=== PATIENT | female | born 1955 | race Caucasian/White ===

== ENCOUNTER → 2017-02-09 | Outpatient (CLI) | payer BC ==
--- NOTE | 2017-02-09 12:49 | EST ---
DATE OF SERVICE: 02/09/2017 AGE: 61Y SEX: F HT: 65" WT: 185 lbs. Protocol Nahun: X Other: Stress Stage: 2 Dur. of Exercise: 6:30 *Heart Rate Blood Pressure *Rest: 98 Rest: 158/109 * *Max. Achieved: 142 Maximum BP: 211/110 85% PMHR: 137 100% PMHR: 161 *METS: 7.9 INDICATIONS: Hypertension. MEDICATIONS: Nexium, lisinopril. Mrs. Gillespie is a 61-year-old female with history of hypertension and family history of ischemic heart disease being evaluated for cardiac status. Baseline EKG showed sinus rhythm with normal CO interval and QRS duration. Blood pressure at rest is 158/109 with a pulse rate of 98. Patient walked on the Nahun protocol for 6-1/2 minutes achieving a maximum heart rate of rate of 142 with a blood pressure of 210/110. EKGs taken during and after the exercise did not reveal any significant changes from the baseline. FINAL IMPRESSION: 1. Negative stress test. 2. Patient did not experience any chest pain. 3. No arrhythmias were detected. 4. Patient's exercise capacity is fair.
--- NOTE | 2017-02-14 14:10 | ECHOF ---
Referral Reason:I10 Hypertension MEASUREMENTS -------- HEIGHT: 165.1 cm WEIGHT: 83.9 kg BP: 158/109 RVIDd: 3.0 cm (< 3.3) IVSd: 1.1 cm (0.6 - 1.1) LVIDd: 4.6 cm (3.9 - 5.3) LVPWd: 1.1 cm (0.6 - 1.1) IVSs: 1.3 cm LVIDs: 2.9 cm LVPWs: 1.3 cm LA Diam: 2.8 cm (2.7 - 3.8) LAESV Index (A-L): 13.01 ml/m Ao Diam: 3.4 cm (2.0 - 3.7) AV Cusp: 2.2 cm (1.5 - 2.6) MV EXCURSION: 11.063 mm (> 18.000) MV EF SLOPE: 22 mm/s (70 - 150) MV E Bennett: 0.69 m/s MV DecT: 284 ms MV A Bennett: 0.91 m/s MV E/A Ratio: 0.76 FINDINGS -------- Sinus rhythm. This was a technically good study. The left ventricular size is normal. There is borderline concentric left ventricular hypertrophy. Overall left ventricular systolic function is normal with, an EF between 60 - 65 %. The right ventricle is normal in size and function. Normal LA size by volume 22+/-6 ml/m2. The right atrium is normal in size. Aortic valve is trileaflet and is mildly thickened. The mitral valve is normal. The tricuspid valve appears structurally normal. Trace/mild (physiologic) pulmonic regurgitation. The aortic root size is normal. Normal inferior vena cava with normal inspiratory collapse consistent with estimated right atrial pressure of 5 mmHg. The pericardium is normal. CONCLUSIONS -------- 1. Sinus rhythm. 2. The mitral valve is normal. 3. The tricuspid valve appears structurally normal. 4. Trace/mild (physiologic) pulmonic regurgitation. 5. The aortic root size is normal. 6. The pericardium is normal. 7. This was a technically good study. 8. The left ventricular size is normal. 9. There is borderline concentric left ventricular hypertrophy. 10. Overall left ventricular systolic function is normal with, an EF between 60 - 65 %. 11. The right ventricle is normal in size and function. 12. Normal LA size by volume 22+/-6 ml/m2. 13. The right atrium is normal in size. 14. Aortic valve is trileaflet and is mildly thickened. SOLAR SYSTEM DESIGNER: Sharla Hall RDCS
== END | disposition home or self-care (01) ==
LOC: RADNMMAIN 11:06
PROVIDERS: ATTEND Internal Medicine
DX: I10 Essential (primary) hypertension (principal)
CPT/HCPCS: 93017; 93306

== ENCOUNTER → 2017-09-14 | Outpatient (CLI) | payer BC ==
--- NOTE | 2017-09-15 08:57 | MM ---
Reason for exam: screening (asymptomatic). Last mammogram was performed 1 year and 1 month ago. History: Patient is postmenopausal. Physical Findings: A clinical breast exam by your physician is recommended on an annual basis and results should be correlated with mammographic findings. MG 3D Screening Mammo W/Cad Bilateral CC and MLO view(s) were taken. Prior study comparison: August 10, 2016, bilateral MG 3d screening mammo w/cad. August 06, 2015, bilateral MG 3d screening mammo w/cad. The breast tissue is heterogeneously dense. This may lower the sensitivity of mammography. Focal asymmetry outer left CC view 7.7cm from nipple. This finding is changed when compared with previous exams. ASSESSMENT: Incomplete: need additional imaging evaluation, BI-RAD 0 RECOMMENDATION: Special view mammogram of the left breast. If lesion persists on supplemental views, image directed ultrasound is recommended. [facility] will attempt to contact patient to return for supplemental views and ultrasound if indicated.
== END | disposition home or self-care (01) ==
LOC: RADMAMWWP 15:44
PROVIDERS: ATTEND Internal Medicine
DX: Z12.31 Encounter for screening mammogram for malignant neoplasm of breast (principal)
CPT/HCPCS: 77063; G0202

== ENCOUNTER → 2018-11-06 | Outpatient (CLI) | payer BC ==
--- NOTE | 2018-11-08 09:42 | MM ---
Reason for exam: screening (asymptomatic). Last mammogram was performed 1 year and 1 month ago. History: Patient is postmenopausal. Physical Findings: A clinical breast exam by your physician is recommended on an annual basis and results should be correlated with mammographic findings. MG 3D Screening Mammo W/Cad Bilateral CC and MLO view(s) were taken. Prior study comparison: September 21, 2017, left breast MG 3d work up w/cad LT. September 14, 2017, bilateral MG 3d screening mammo w/cad. There are scattered fibroglandular densities. Subareolar focal asymmetry on the left appears more defined and incompletely disperses on 3D. ASSESSMENT: Incomplete: need additional imaging evaluation, BI-RAD 0 RECOMMENDATION: Special view mammogram of the left breast. If lesion persists on supplemental views, image directed ultrasound is recommended. [facility] will attempt to contact patient to return for supplemental views and ultrasound if indicated.
== END | disposition home or self-care (01) ==
LOC: RADMAMWWP 15:24
PROVIDERS: ATTEND Internal Medicine
DX: Z12.31 Encounter for screening mammogram for malignant neoplasm of breast (principal)
CPT/HCPCS: 77063; 77067

== ENCOUNTER → 2018-11-13 | Outpatient (CLI) | payer BC ==
--- NOTE | 2018-11-14 08:05 | MM ---
Reason for exam: additional evaluation requested from abnormal screening. Last mammogram was performed less than 1 month ago. History: Patient is postmenopausal. Physical Findings: Nurse Summary: nodule in the right breast at 3 o'clock and a nodule in the left breast at 2/3 o'clock (nurse kp). MG 3D Work Up W/Cad LT Spot compression CC, spot compression MLO, and LM view(s) were taken of the left breast. Prior study comparison: November 06, 2018, bilateral MG 3d screening mammo w/cad. September 21, 2017, left breast MG 3d work up w/cad LT. There are scattered fibroglandular densities. Subareolar focal asymmetry appears to disperse on additional 3D views. Bilateral palpable markers have been placed. These results were verbally communicated with the patient and result sheet given to the patient on 11/13/18. ASSESSMENT: Incomplete: need additional imaging evaluation, BI-RAD 0 RECOMMENDATION: Ultrasound of both breasts. (right upper inner quadrant palpable, left 5 palpables)
--- NOTE | 2018-11-14 08:11 | USB ---
Reason for exam: additional evaluation requested from abnormal screening. History: Patient is postmenopausal. US Breast Workup Limited ASHLEY Right limited breast ultrasound including focal area of concern, retroareolar and axilla demonstrates a 2.1 x 2.1 x 1.9cm oval, circumscribed, solid, mildly hyperechoic lipoma at 3 o'clock BB. Left complete breast ultrasound includes all four quadrants, the retroareolar region and axilla. Finding demonstrates a 0.4 x 0.4 x 0.2cm oval, solid, hyperechoic lesion at 12 o'clock, most compatible with lipoma, duct ectasia at 3 o'clock, a 1.5 x 2.0 x 0.6cm oval, solid, hyperechoic lesion at 3 o'clock BB, a 1.8 x 1.6 x 0.6cm oval, isoechoic, circumscribed lesion at 3:30 BB, suggestive of lipoma, a 0.8 x 0.5 x 0.4cm oval, solid, isoechoic, circumscribed lesion at 3:30, suggestive of lipoma, a 1.3 x 1.5 x 0.6cm solid lesion at 8 o'clock BB, a 2.8 x 2.0 x 0.9cm solid lesion at 9 o'clock BB, a 2.3 x 2.6 x 0.8cm solid lesion at 9 o'clock BB and a 0.8 x 0.9 x 0.4cm solid, echogenic lipoma at 11 o'clock. These results were verbally communicated with the patient and result sheet given to the patient on 11/13/18. ASSESSMENT: Probably benign, BI-RAD 3 RECOMMENDATION: Follow-up diagnostic mammogram of both breasts in 1 year.
== END | disposition home or self-care (01) ==
LOC: RADMAMWWP 13:15
PROVIDERS: ATTEND Internal Medicine
DX: R92.8 Other abnormal and inconclusive findings on diagnostic imaging of breast (principal)
CPT/HCPCS: 77061; 77065

== ENCOUNTER → 2020-03-12 | Outpatient (CLI) | payer BC ==
--- NOTE | 2020-03-13 10:15 | MM ---
Reason for exam: additional evaluation requested from prior study. Last mammogram was performed 1 year and 4 months ago. History: Patient is postmenopausal. Physical Findings: Nurse Summary: 2cm nodule in the right breast at 3 o'clock and a 2cm nodule in the left breast at 9 o'clock, 12 o'clock and 3 o'clock (nurse mj). MG 3D Diag Mammo W/Cad ASHLEY Bilateral CC and MLO view(s) were taken. LM and spot compression MLO view(s) were taken of the left breast. Prior study comparison: November 13, 2018, left breast MG 3d work up w/cad LT. November 06, 2018, bilateral MG 3d screening mammo w/cad. September 14, 2017, bilateral MG 3d screening mammo w/cad. August 10, 2016, bilateral MG 3d screening mammo w/cad. There are scattered fibroglandular densities. Bilateral palpable markers. Left subareolar asymmetric density on MLO does not clearly persist on 3D lateral view. These results were verbally communicated with the patient and result sheet given to the patient on 03/12/20. ASSESSMENT: Incomplete: need additional imaging evaluation, BI-RAD 0 RECOMMENDATION: Ultrasound of both breasts. (right palpable, left palpable and periareolar)
--- NOTE | 2020-03-13 10:20 | USB ---
Reason for exam: additional evaluation requested from abnormal screening. History: Patient is postmenopausal. US Breast Limited BILAT Technologist: Radha Moran Right limited breast ultrasound including focal area of concern, retroareolar and axilla demonstrates three oval, hyperechoic lesions measuring 0.6 x 0.7 x 0.3cm at 1 o'clock, 1.9 x 1.5 x 0.6cm at 2 o'clock and 2.8 x 3.1 x 0.9cm at 3 o'clock. Left limited breast ultrasound including focal area of concern, retroareolar and axilla demonstrates three oval, hyperechoic lesions measuring 2.8 x 2.8 x 1.0cm at 9 o'clock, 1.5 x 1.5 x 0.5cm at 12 o'clock and 1.8 x 1.7 x 0.6cm at 3 o'clock. Most compatible with benign lipomas. No subareolar lesion on the left breast. 6 month follow up mammogram. Scanned right breast 12-3 o'clock. Scanned left breast 9-3 o'clock. These results were verbally communicated with the patient and result sheet given to the patient on 03/12/20. ASSESSMENT: Probably benign, BI-RAD 3 RECOMMENDATION: Follow-up diagnostic mammogram of the left breast in 6 months.
== END | disposition home or self-care (01) ==
LOC: RADMAMWWP 08:07
PROVIDERS: ATTEND Internal Medicine
DX: R92.8 Other abnormal and inconclusive findings on diagnostic imaging of breast (principal)
CPT/HCPCS: 77062; 77066

== ENCOUNTER → 2020-11-11 | Outpatient (CLI) | payer BC ==
--- NOTE | 2020-11-11 11:17 | MM ---
Reason for exam: follow-up at short interval from prior study. Last mammogram was performed 8 months ago. History: Patient is postmenopausal. Physical Findings: Nurse Summary: 1.5cm nodule in the right breast and a 1.5cm nodule in the left breast (nurse dw). MG 3D Diag Mammo W/Cad LT CC and MLO view(s) were taken of the left breast. Prior study comparison: March 12, 2020, bilateral MG 3d diag mammo w/cad ASHLEY. November 06, 2018, bilateral MG 3d screening mammo w/cad. There are scattered fibroglandular densities. No significant new findings when compared with previous films. These results were verbally communicated with the patient and result sheet given to the patient on 11/11/20. ASSESSMENT: Benign, BI-RAD 2 RECOMMENDATION: Routine screening mammogram of both breasts in 5 months. Back on schedule for February 2021.
== END | disposition home or self-care (01) ==
LOC: RADMAMWWP 07:13
PROVIDERS: ATTEND Internal Medicine
DX: R92.8 Other abnormal and inconclusive findings on diagnostic imaging of breast (principal)
CPT/HCPCS: 77061; 77065

== ENCOUNTER → 2021-03-25 | Outpatient (CLI) | payer BC ==
--- NOTE | 2021-03-27 15:08 | MM ---
Reason for exam: screening (asymptomatic). Last mammogram was performed 4 months ago. History: Patient is postmenopausal. Physical Findings: A clinical breast exam by your physician is recommended on an annual basis and results should be correlated with mammographic findings. MG 3D Screening Mammo W/Cad Bilateral CC and MLO view(s) were taken. Prior study comparison: November 11, 2020, left breast MG 3d diag mammo w/cad LT. March 12, 2020, bilateral MG 3d diag mammo w/cad ASHLEY. There are scattered fibroglandular densities. No significant changes when compared with prior studies. ASSESSMENT: Negative, BI-RAD 1 RECOMMENDATION: Routine screening mammogram of both breasts in 1 year.
== END | disposition home or self-care (01) ==
LOC: RADMAMWWP 15:59
PROVIDERS: ATTEND Internal Medicine
DX: Z12.31 Encounter for screening mammogram for malignant neoplasm of breast (principal); Z78.0 Asymptomatic menopausal state
CPT/HCPCS: 77063; 77067

== ENCOUNTER → 2022-04-02 | Outpatient (CLI) | payer BC ==
--- NOTE | 2022-04-02 12:18 | MM ---
Reason for Exam: Screening (asymptomatic). Last mammogram was performed 1 year(s) and 1 month(s) ago. Patient History: Menarche at age 14. First Full-Term at age 27. Postmenopausal. Risk Values: Qiana 5 year model risk: 1.8%. NCI Lifetime model risk: 7.2%. Prior Study Comparison: 03/12/2020 Bilateral Diagnostic Mammogram, [facility]. 11/11/2020 Left Diagnostic Mammogram, [facility]. 03/25/2021 Bilateral Screening Mammogram, [facility]. Tissue Density: There are scattered fibroglandular densities. Findings: Analyzed By CAD. There is no suspicious group of microcalcifications or new suspicious mass in either breast. Overall Assessment: Negative, BI-RAD 1 Management: Screening Mammogram of both breasts in 1 year. A clinical breast exam by your physician is recommended on an annual basis and results should be correlated with mammographic findings. Electronically signed and approved by: Raymon Mcfadden M.D.
== END | disposition home or self-care (01) ==
LOC: RADMAMWWP 06:59
PROVIDERS: ATTEND Internal Medicine
DX: Z12.31 Encounter for screening mammogram for malignant neoplasm of breast (principal); Z78.0 Asymptomatic menopausal state
CPT/HCPCS: 77063; 77067

== ENCOUNTER → 2023-04-26 | Outpatient (CLI) | payer MEDICARE ==
--- NOTE | 2023-04-27 18:46 | MM ---
Reason for Exam: Screening (asymptomatic). Last mammogram was performed 1 year(s) and 1 month(s) ago. Patient History: Menarche at age 14. First Full-Term at age 27. Postmenopausal. Risk Values: Qiana 5 year model risk: 1.8%. NCI Lifetime model risk: 6.9%. Prior Study Comparison: 11/11/2020 Left Diagnostic Mammogram, [facility]. 03/25/2021 Bilateral Screening Mammogram, [facility]. 04/02/2022 Bilateral MG 3D screening mammo w/cad, [facility]. Tissue Density: There are scattered fibroglandular densities. Findings: Analyzed By CAD. Pattern appears symmetrical and stable. No significant interval change is evident. No suspicious groups of microcalcifications, spiculated or lobular masses, architectural distortion or other secondary signs of malignancy are mammographically apparent. Overall Assessment: Benign, BI-RAD 2 Management: Screening Mammogram of both breasts in 1 year. A negative mammogram report should not preclude additional follow up of suspicious palpable abnormalities. Patient should continue monthly self breast exam. A clinical breast exam by your physician is recommended on an annual basis and results should be correlated with mammographic findings. Electronically signed and approved by: Regis Dove D.O. Radiologis
== END | disposition home or self-care (01) ==
LOC: RADMAMWWP 07:18
PROVIDERS: ATTEND Internal Medicine
DX: Z12.31 Encounter for screening mammogram for malignant neoplasm of breast (principal); Z78.0 Asymptomatic menopausal state
CPT/HCPCS: 77063; 77067

== ENCOUNTER → 2024-02-03 | Outpatient (CLI) | payer MEDICARE ==
--- NOTE | 2024-02-03 18:44 | CA ---
Transthoracic Echo Report Name: Celine Gillespie Age: 68 Gender: F : 1955 Exam Date: 02/03/2024 11:40 Exam Location: [facility] Ht (in): 65 Wt (lb): 170 Ordering Physician: Glendy Naik MD Attending/Referring Phys: Glendy Naik MD Wildlife Control Operator Consuelo Man RDCS Procedure CPT: Indications: I10 HTN Cardiac Hx: Technical Quality: Fair Contrast 1: Total Dose (mL): Contrast 2: Total Dose (mL): MEASUREMENTS (Male / Female) Normal Values 2D ECHO LV Diastolic Diameter PLAX 3.5 cm 4.2 - 5.9 / 3.9 - 5.3 cm LV Systolic Diameter PLAX 1.8 cm IVS Diastolic Thickness 1.4 cm 0.6 - 1.0 / 0.6 - 0.9 cm LVPW Diastolic Thickness 1.2 cm 0.6 - 1.0 / 0.6 - 0.9 cm LV Relative Wall Thickness 0.7 RV Internal Dim ED PLAX 2.9 cm LA Volume 26.4 cm??? 18 - 58 / 22 - 52 cm??? LA Volume Index 13.9 cm???/m??? 16 - 28 cm???/m??? M-MODE Aortic Root Diameter MM 3.2 cm LA Systolic Diameter MM 3.9 cm LA Ao Ratio MM 1.2 AV Cusp Separation MM 2.0 cm DOPPLER AV Peak Velocity 138.7 cm/s AV Peak Gradient 7.7 mmHg AV Mean Velocity 100.2 cm/s AV Mean Gradient 4.4 mmHg AV Velocity Time Integral 22.9 cm LVOT Peak Velocity 92.0 cm/s LVOT Peak Gradient 3.4 mmHg LVOT Velocity Time Integral 18.5 cm MV Area PHT 2.5 cm??? Mitral E Point Velocity 86.1 cm/s Mitral A Point Velocity 102.2 cm/s Mitral E to A Ratio 0.8 MV Deceleration Time 302.6 ms MV E' Velocity 5.5 cm/s Mitral E to MV E' Ratio 15.7 TR Peak Velocity 162.2 cm/s TR Peak Gradient 10.5 mmHg Right Ventricular Systolic Press 15.2 mmHg FINDINGS Left Ventricle Moderately increased left ventricular wall thickness. Left ventricular cavity size normal. Normal left ventricular systolic function with no obvious regional wall motion abnormalities. Left ventricular ejection fraction is estimated at 55-60 %. Grade 1 diastolic dysfunction. Right Ventricle Mild right ventricular dilatation. Right ventricular systolic pressure within normal limits. Right Atrium Normal right atrial size. Left Atrium Normal left atrial size. Mitral Valve Structurally normal mitral valve. Mitral valve thickened. Mild mitral annular calcification. Trace to mild mitral regurgitation. Aortic Valve Trileaflet aortic valve. No aortic valve stenosis or regurgitation. Tricuspid Valve Structurally normal tricuspid valve. Trace to mild tricuspid regurgitation. Pulmonic Valve Structurally normal pulmonic valve. Pericardium No pericardial effusion. Aorta Normal size aortic root and proximal ascending aorta. CONCLUSIONS Normal LV systolic function Previewed by: Dr. Lloyd Higgins MD (Electronically Signed) Final Date: 03 Feb 2024 18:43
== END | disposition home or self-care (01) ==
LOC: RADNMMAIN 10:45
PROVIDERS: ATTEND Internal Medicine
DX: I10 Essential (primary) hypertension (principal)
CPT/HCPCS: 93306

== ENCOUNTER → 2024-08-07 | Outpatient (CLI) | payer MEDICARE ==
--- NOTE | 2024-08-11 22:18 | MM ---
Reason for Exam: Screening (asymptomatic). Last mammogram was performed 1 year(s) and 3 month(s) ago. Patient History: Menarche at age 14. First Full-Term at age 27. Postmenopausal. Risk Values: Qiana 5 year model risk: 1.9%. NCI Lifetime model risk: 6.4%. Prior Study Comparison: 03/25/2021 Bilateral Screening Mammogram, [facility]. 04/02/2022 Bilateral MG 3D screening mammo w/cad, [facility]. 04/26/2023 Bilateral MG 3D screening mammo w/cad, [facility]. Tissue Density: There are scattered areas of fibroglandular density. Findings: Analyzed By CAD. The pattern is symmetrical. Abdomen is stable. No significant interval change is evident. No suspicious groups of microcalcifications, spiculated or lobular masses, architectural distortion or other secondary signs of malignancy are mammographically apparent. Overall Assessment: Benign, BI-RAD 2 Management: Screening Mammogram of both breasts in 1 year. A negative mammogram report should not preclude additional follow up of suspicious palpable abnormalities. Patient should continue monthly self breast exam. A clinical breast exam by your physician is recommended on an annual basis and results should be correlated with mammographic findings. Note on Qiana scores and lifetime risk: 1. A Qiana score greater than 3% is considered moderate risk. If this is the case, consider specialist referral to assess eligibility for a risk reducing agent. 2. If overall lifetime risk for the development of breast cancer is 20% or higher, the patient may qualify for future screening with alternating mammogram and breast MRI. [facility], , 08/11/2024 10:15 PM. Electronically signed and approved by: Regis Dove D.O. Radiologis
== END | disposition home or self-care (01) ==
LOC: RADMAMWWP 07-25 13:04
PROVIDERS: ATTEND Internal Medicine
DX: Z12.31 Encounter for screening mammogram for malignant neoplasm of breast (principal); R92.323 Mammographic fibroglandular density, bilateral breasts; Z78.0 Asymptomatic menopausal state
CPT/HCPCS: 77063; 77067